=== PATIENT | female | born 1985 | race Caucasian/White ===

== ENCOUNTER → 2017-02-15 | Outpatient (REF) | payer OTHER ==
[2017-02-15 18:23] LABS: MEAN CORPUSCULAR HEMOGLOBIN 32.9 pg (27.0-33.0); MEAN CORPUSCULAR VOLUME 96.7 fl (80.0-96.0); RED CELL DISTRIBUTION WIDTH 12.4 % (11.5-14.5); WHITE BLOOD COUNT 4.3 K/mm3 (4.0-10.0)
[2017-02-15 18:52] LABS: HCG, SERUM QUANTITATIVE 763 MIU/ML
== END ==
LOC: M LAB REF 16:30
PROVIDERS: ATTEND Obstetrics & Gynecology
DX: O36.80X0 Pregnancy with inconclusive fetal viability, not applicable or unspecified (principal); O23.40 Unspecified infection of urinary tract in pregnancy, unspecified trimester

== ENCOUNTER → 2017-03-15 | Outpatient (REF) | payer OTHER | LOC: M LAB REF 17:15 | PROVIDERS: ATTEND Obstetrics & Gynecology | DX: Z34.91 Encounter for supervision of normal pregnancy, unspecified, first trimester (principal); Z11.3 Encounter for screening for infections with a predominantly sexual mode of transmission ==

== ENCOUNTER 2017-09-17 18:21 | Outpatient (CLI) | payer BC, OTHER ==
[~2017-09-17] VITALS: Ht 160 cm; Wt 78.3 kg
[2017-09-17] MEDS ORDERED: PRENTAB9 PO (18:35)
[2017-09-17 19:21] VITALS: BP 123/78
[2017-09-17] MEDS ORDERED: LR 1,000 ML IV ONE (20:30)
[2017-09-17 21:30] LABS: MEAN CORPUSCULAR HEMOGLOBIN 31.2 pg (27.0-33.0); MEAN CORPUSCULAR HGB CONC 33.7 g/dl (32.0-36.5); MEAN CORPUSCULAR VOLUME 92.4 fl (80.0-96.0); PLATELET COUNT, AUTOMATED 335 10^3/uL (150-450); RED CELL DISTRIBUTION WIDTH 12.8 % (11.5-14.5); WHITE BLOOD COUNT 8.7 10^3/uL (4.0-10.0)
== END 2017-09-17 22:06 | disposition home or self-care (01) ==
LOC: M LDO 18:21
PROVIDERS: ATTEND Obstetrics & Gynecology
DX: O47.03 False labor before 37 completed weeks of gestation, third trimester (principal); Z3A.34 34 weeks gestation of pregnancy; Z88.0 Allergy status to penicillin

== ENCOUNTER → 2017-09-26 | Outpatient (REF) | payer OTHER | LOC: M LAB REF 16:48 | DX: Z34.83 Encounter for supervision of other normal pregnancy, third trimester (principal); Z3A.35 35 weeks gestation of pregnancy ==

== ENCOUNTER 2017-10-25 06:38 | Outpatient (CLI) | payer BC, OTHER | END 2017-10-25 13:16 | disposition home or self-care (01) | LOC: M LDO 06:38 | DX: O47.1 False labor at or after 37 completed weeks of gestation (principal); Z3A.40 40 weeks gestation of pregnancy; Z88.0 Allergy status to penicillin | CPT/HCPCS: 59025 ==

== ENCOUNTER 2017-10-27 13:31 | Inpatient (IN) | payer BC, OTHER ==
[2017-10-27] MEDS: LACTATED RINGER'S 1000 ML IV (14:36)
[2017-10-27 15:10] LABS: HEMATOCRIT 31.7 % (36.0-47.0); HEMOGLOBIN 10.5 g/dl (12.0-16.0); MEAN CORPUSCULAR HEMOGLOBIN 30.7 pg (27.0-33.0); MEAN CORPUSCULAR HGB CONC 33.1 g/dl (32.0-36.5); MEAN CORPUSCULAR VOLUME 92.7 fl (80.0-96.0); PLATELET COUNT, AUTOMATED 356 10^3/uL (150-450); RED BLOOD COUNT 3.42 10^6/uL (4.00-5.40); RED CELL DISTRIBUTION WIDTH 13.6 % (11.5-14.5); WHITE BLOOD COUNT 9.1 10^3/uL (4.0-10.0)
[2017-10-27] MEDS: OXYTOCIN DRIP 30 UNITS in APPROPRIATE DILUENT 1 EA IV (15:26)
[2017-10-27] MEDS: LR 1,000 ML IV (16:12)
[2017-10-27] MEDS ORDERED: FENTANYL 2MCG/ML ROPIVACAINE 0.2% IN 0.9% NACL 200ML IVBAG As Ordered (16:28)
[2017-10-27 17:13] LABS: ALT/SGPT 17 U/L (12-78); AST/SGOT 19 U/L (7-37); BILIRUBIN,TOTAL 0.1 MG/DL (0.2-1.0); CREATININE FOR GFR 0.85 MG/DL (0.55-1.30); GLOMERULAR FILTRATION RATE > 60.0 (>60); LDH LACTATE DEHYDROGENASE 214 U/L (84-246); URIC ACID 4.7 MG/DL (2.6-6.0)
[2017-10-27] MEDS ORDERED: diphenhydrAMINE INJ 50MG/ML VIAL (J1200) IV (17:45)
[2017-10-27] MEDS ORDERED: NALOXONE INJ 0.4 MG/1 ML VIAL (J2310) IV (17:45)
[2017-10-27] MEDS ORDERED: FENTANYL/ROPIVACAINE/NACL BAG 200 ML EPIDURAL (17:45)
[2017-10-27] MEDS ORDERED: REFRIGERATOR IV KEYS XX (17:45)
[2017-10-27] MEDS ORDERED: ONDANSETRON 4MG/2ML VIAL (J2405) IV (17:45)
[2017-10-27] MEDS ORDERED: EPIDURAL COMMENT XX (17:45)
[2017-10-27] MEDS ORDERED: ePHEDrine INJ 50 MG/ML VIAL IV (17:45)
[2017-10-27] MEDS ORDERED: EPIDURAL/PCA KEYS XX (17:45)
[2017-10-28] MEDS ORDERED: NALOXONE INJ 0.4 MG/1 ML VIAL (J2310) IV ×2
[2017-10-28] MEDS ORDERED: OXYTOCIN INJ 10 UNITS/ML VIAL (J2590) As Ordered ×2 (00:58)
[2017-10-28] MEDS ORDERED: MORPHINE PRES-FREE INJ 10 MG/10 ML VIAL (J2274) As Ordered (00:58)
[2017-10-28] MEDS ORDERED: ceFAZolin 2 GM/D5W 50 ML IV BAG (J0690 PER 500MG) As Ordered (01:00)
[2017-10-28] MEDS ORDERED: BICITRA 30ML SOLN UDC As Ordered (01:04)
[2017-10-28] MEDS: BICITRA 30ML SOLN UDC PO (01:15)
[2017-10-28] MEDS ORDERED: ONDANSETRON 4MG/2ML VIAL (J2405) As Ordered (01:23)
[2017-10-28] MEDS ORDERED: METOCLOPRAMIDE INJ 10MG/2ML VIAL (J2765) As Ordered (01:36)
[2017-10-28] MEDS ORDERED: PHENYLephrine HCL 500 MCG/5 ML (100MCG/ML) SYRINGE (J2370) As Ordered (01:45)
[2017-10-28 02:05] LABS: CORD GAS ABE V -3.3; CORD GAS HCO3 V 21.3 MEQ/L; CORD GAS PCO2 V 37.3 mmHg; CORD GAS PH V 7.375 UNITS; CORD GAS PO2 V 31.7 mmHg; CORD GAS SBC V 21.2 MEQ/L; CORD GAS TCO2 V 22.5 MEQ/L
[2017-10-28 02:06] LABS: CORD GAS ABE A -2.9; CORD GAS HCO3 A 23.3 MEQ/L; CORD GAS O2 SAT A 34.1 %; CORD GAS PCO2 A 45.6 mmHg; CORD GAS PH A 7.326 UNITS; CORD GAS PO2 A 16.7 mmHg; CORD GAS SBC A 20.5 MEQ/L; CORD GAS TCO2 A 24.7 MEQ/L
[2017-10-28] MEDS ORDERED: MEASLES,MUMPS,RUBELLA VACCINE INJ (MMR-II) (90707) SC (02:15)
[2017-10-28] MEDS ORDERED: RHOGAM 300 MCG (1500 IU) INJ (J2790) IM (02:15)
[2017-10-28] MEDS ORDERED: ONDANSETRON 4MG/2ML VIAL (J2405) IV ×2 (02:15→03:15)
[2017-10-28] MEDS ORDERED: METHYLERGONOVINE MALEATE 0.2 MG TAB PO (02:15)
[2017-10-28] MEDS ORDERED: fentaNYL 100 MCG/2 ML INJECTION (J3010) As Ordered (02:17)
[2017-10-28] MEDS ORDERED: IBUPROFEN 800 MG TAB PO (03:00)
[2017-10-28] MEDS ORDERED: MEPERIDINE INJ 25 MG/ML VIAL (J2175) IV (03:15)
[2017-10-28] MEDS ORDERED: fentaNYL 100 MCG/2 ML INJECTION (J3010) IV (03:15)
[2017-10-28] MEDS ORDERED: NORCO, ANEXSIA 5/325MG TABLET (HYDROcodone/ACETAMINOPHEN) PO (03:15)
[2017-10-28] MEDS ORDERED: NALBUPHINE HCL 10 MG/ML AMP (J2300) IV (03:15)
[2017-10-28] MEDS: LR 1,000 ML IV ×4 (03:45→18:01)
[2017-10-28] MEDS: KETOROLAC 30 MG/ML VIAL (J1885) IV (04:25)
[2017-10-28] MEDS: ANUSOL HC CREAM 30GM TOP ×2 (04:47→20:01)
[2017-10-28] MEDS: NORCO, ANEXSIA 5/325MG TABLET (HYDROcodone/ACETAMINOPHEN) PO (06:20)
[2017-10-28] MEDS: NALBUPHINE HCL 10 MG/ML AMP (J2300) IV ×2 (06:21→11:23)
[2017-10-28] MEDS: METOCLOPRAMIDE INJ 10MG/2ML VIAL (J2765) IV (08:28)
[2017-10-28] MEDS: DOCUSATE SODIUM 100 MG CAP PO ×2 (08:28→20:01)
[2017-10-28] MEDS: PRENATAL VITAMINS CHEWABLE TABLET PO (09:00)
[2017-10-28] MEDS: ONDANSETRON 4MG/2ML VIAL (J2405) IV (11:24)
[2017-10-28] MEDS: IBUPROFEN 800 MG TAB PO ×2 (12:58→20:01)
[2017-10-29] MEDS: NORCO, ANEXSIA 5/325MG TABLET (HYDROcodone/ACETAMINOPHEN) PO ×4 (02:17→23:28)
[2017-10-29] MEDS: IBUPROFEN 800 MG TAB PO ×3 (05:46→21:24)
[2017-10-29 06:37] LABS: HEMATOCRIT 22.8 % (36.0-47.0); MEAN CORPUSCULAR HEMOGLOBIN 31.1 pg (27.0-33.0); MEAN CORPUSCULAR HGB CONC 32.9 g/dl (32.0-36.5); MEAN CORPUSCULAR VOLUME 94.6 fl (80.0-96.0); PLATELET COUNT, AUTOMATED 238 10^3/uL (150-450); RED BLOOD COUNT 2.41 10^6/uL (4.00-5.40); RED CELL DISTRIBUTION WIDTH 14.1 % (11.5-14.5); WHITE BLOOD COUNT 11.4 10^3/uL (4.0-10.0)
[2017-10-29 06:48] LABS: HEMOGLOBIN 7.5 g/dl (12.0-16.0)
[2017-10-29] MEDS: PRENATAL VITAMINS CHEWABLE TABLET PO (07:55)
[2017-10-29] MEDS: DOCUSATE SODIUM 100 MG CAP PO ×2 (07:55→21:23)
[2017-10-29] MEDS: MOM 30ML SUSPENSION UDC PO (13:56)
[2017-10-29] MEDS: SIMETHICONE 80 MG CHEW TAB PO ×2 (15:35→21:33)
[2017-10-30] MEDS: IBUPROFEN 800 MG TAB PO (04:35)
[2017-10-30] MEDS: ANUSOL HC CREAM 30GM TOP ×2 (04:36→11:51)
[2017-10-30 07:02] LABS: HEMATOCRIT 22.2 % (36.0-47.0); HEMOGLOBIN 7.2 g/dl (12.0-16.0); MEAN CORPUSCULAR HEMOGLOBIN 30.8 pg (27.0-33.0); MEAN CORPUSCULAR HGB CONC 32.4 g/dl (32.0-36.5); MEAN CORPUSCULAR VOLUME 94.9 fl (80.0-96.0); PLATELET COUNT, AUTOMATED 253 10^3/uL (150-450); RED BLOOD COUNT 2.34 10^6/uL (4.00-5.40); RED CELL DISTRIBUTION WIDTH 14.2 % (11.5-14.5); WHITE BLOOD COUNT 8.2 10^3/uL (4.0-10.0)
[2017-10-30] MEDS: DOCUSATE SODIUM 100 MG CAP PO (08:12)
[2017-10-30] MEDS: PRENATAL VITAMINS CHEWABLE TABLET PO (08:12)
[2017-10-30] MEDS: BISACODYL 10 MG SUPP PR (10:59)
[2017-10-30] MEDS: SIMETHICONE 80 MG CHEW TAB PO (11:51)
== END 2017-10-30 12:45 | disposition home or self-care (01) | DRG 540 ==
LOC: M LDI 13:31 → M OBS 10-28 03:26
PROVIDERS: Advanced Practice Midwife
PROC: 10D00Z1 Extraction of Products of Conception, Low, Open Approach (ICD-10-PCS; principal; 2017-10-28 01:10)
PROC: 10907ZC Drainage of Amniotic Fluid, Therapeutic from Products of Conception, Via Natural or Artificial Opening (ICD-10-PCS; 2017-10-28 01:10)
DX: O41.03X0 Oligohydramnios, third trimester, not applicable or unspecified (principal); O32.4XX0 Maternal care for high head at term, not applicable or unspecified; Z37.0 Single live birth; Z3A.40 40 weeks gestation of pregnancy

== ENCOUNTER 2017-12-05 21:45 | Emergency (ER) | payer BC, OTHER ==
[2017-12-05] MEDS: NS 1,000 ML IV (23:20)
[2017-12-05 23:29] LABS: BASO % 0.7 % (0.0-1.0); EOS # 0.2 10^3/uL (0.0-0.50); EOS % 3.3 % (0.0-3.0); HEMATOCRIT 33.8 % (36.0-47.0); HEMOGLOBIN 11.1 g/dl (12.0-16.0); IMMATURE GRANULOCYTE % 0.2 % (0-3.0); LYMPH # 2.4 10^3/uL (1.5-6.5); LYMPH % 44.2 % (24.0-44.0); MEAN CORPUSCULAR HEMOGLOBIN 29.7 pg (27.0-33.0); MEAN CORPUSCULAR HGB CONC 32.8 g/dl (32.0-36.5); MEAN CORPUSCULAR VOLUME 90.4 fl (80.0-96.0); MONO # 0.4 10^3/uL (0.0-0.8); MONO % 6.9 % (0.0-5.0); NEUTROPHILS # 2.4 10^3/uL (1.8-7.7); NEUTROPHILS % 44.7 % (36.0-66.0); PLATELET COUNT, AUTOMATED 290 10^3/uL (150-450); RED BLOOD COUNT 3.74 10^6/uL (4.00-5.40); RED CELL DISTRIBUTION WIDTH 13.4 % (11.5-14.5); WHITE BLOOD COUNT 5.4 10^3/uL (4.0-10.0)
[2017-12-05 23:43] LABS: INR 1.01; PROTHROMBIN TIME 13.4 SECONDS (12.4-14.5)
[2017-12-05 23:58] LABS: ALBUMIN 3.6 GM/DL (3.2-5.2); ALBUMIN/GLOBULIN RATIO 0.82 (1.00-1.93); ALKALINE PHOSPHATASE 102 U/L (45-117); ALT/SGPT 21 U/L (12-78); ANION GAP 6 MEQ/L (8-16); AST/SGOT 16 U/L (7-37); BILIRUBIN,DIRECT < 0.1 MG/DL (0.0-0.2); BILIRUBIN,TOTAL 0.2 MG/DL (0.2-1.0); BLOOD UREA NITROGEN 19 MG/DL (7-18); CALCIUM LEVEL 8.6 MG/DL (8.5-10.1); CARBON DIOXIDE LEVEL 27 MEQ/L (21-32); CHLORIDE LEVEL 107 MEQ/L (98-107); CPK CREATINE PHOSPHOKINASE 51 U/L (26-192); CREATININE FOR GFR 0.92 MG/DL (0.55-1.30); FREE T4 0.82 NG/DL (0.76-1.46); GLOMERULAR FILTRATION RATE > 60.0 (>60); GLUCOSE, FASTING 74 MG/DL (70-100); POTASSIUM SERUM 3.7 MEQ/L (3.5-5.1); SODIUM LEVEL 140 MEQ/L (136-145); TROPONIN I < 0.02 NG/ML (< 0.10)
[2017-12-06 00:03] LABS: D-DIMER QUANT 199.3 ng/ml (<500)
[2017-12-06 00:04] LABS: MB/CK RELATIVE INDEX 1.96 (< OR =4); NT-PRO BNP 69 PG/ML (<125)
== END 2017-12-06 00:42 | disposition home or self-care (01) ==
LOC: M ED 12-06 00:42
DX: R07.89 Other chest pain (principal); R06.00 Dyspnea, unspecified; D64.9 Anemia, unspecified; Z88.0 Allergy status to penicillin
CPT/HCPCS: 93005

== ENCOUNTER 2017-12-13 09:57 | Emergency (ER) | payer BC, OTHER ==
[2017-12-13] MEDS: NS 1,000 ML IV (10:41)
[2017-12-13 10:51] LABS: BASO % 0.9 % (0.0-1.0); EOS # 0.1 10^3/uL (0.0-0.50); EOS % 3.1 % (0.0-3.0); HEMATOCRIT 36.6 % (36.0-47.0); HEMOGLOBIN 11.9 g/dl (12.0-16.0); IMMATURE GRANULOCYTE % 0.2 % (0-3.0); LYMPH # 1.6 10^3/uL (1.5-6.5); LYMPH % 36.1 % (24.0-44.0); MEAN CORPUSCULAR HEMOGLOBIN 28.9 pg (27.0-33.0); MEAN CORPUSCULAR HGB CONC 32.5 g/dl (32.0-36.5); MEAN CORPUSCULAR VOLUME 88.8 fl (80.0-96.0); MONO # 0.3 10^3/uL (0.0-0.8); MONO % 6.9 % (0.0-5.0); NEUTROPHILS # 2.4 10^3/uL (1.8-7.7); NEUTROPHILS % 52.8 % (36.0-66.0); PLATELET COUNT, AUTOMATED 330 10^3/uL (150-450); RED BLOOD COUNT 4.12 10^6/uL (4.00-5.40); RED CELL DISTRIBUTION WIDTH 13.1 % (11.5-14.5); WHITE BLOOD COUNT 4.5 10^3/uL (4.0-10.0)
[2017-12-13 11:05] LABS: D-DIMER QUANT < 270.0 ng/ml (<500)
[2017-12-13 11:07] LABS: CONTROL LINE HCG INT CTR LINE PRESENT; HCG, SERUM QUALITATIVE NEGATIVE (NEGATIVE)
[2017-12-13 11:17] LABS: ALBUMIN 3.9 GM/DL (3.2-5.2); ALBUMIN/GLOBULIN RATIO 0.83 (1.00-1.93); ALKALINE PHOSPHATASE 110 U/L (45-117); ALT/SGPT 24 U/L (12-78); ANION GAP 5 MEQ/L (8-16); AST/SGOT 14 U/L (7-37); BILIRUBIN,DIRECT < 0.1 MG/DL (0.0-0.2); BILIRUBIN,TOTAL 0.3 MG/DL (0.2-1.0); BLOOD UREA NITROGEN 15 MG/DL (7-18); CALCIUM LEVEL 8.9 MG/DL (8.5-10.1); CARBON DIOXIDE LEVEL 28 MEQ/L (21-32); CHLORIDE LEVEL 109 MEQ/L (98-107); CPK CREATINE PHOSPHOKINASE 58 U/L (26-192); CREATININE FOR GFR 1.01 MG/DL (0.55-1.30); GLOMERULAR FILTRATION RATE > 60.0 (>60); GLUCOSE, FASTING 93 MG/DL (70-100); POTASSIUM SERUM 3.6 MEQ/L (3.5-5.1); SODIUM LEVEL 142 MEQ/L (136-145); TOTAL PROTEIN 8.6 GM/DL (6.4-8.2); TROPONIN I < 0.02 NG/ML (< 0.10)
[2017-12-13 11:22] LABS: MB/CK RELATIVE INDEX 1.72 (< OR =4)
== END 2017-12-13 12:12 | disposition home or self-care (01) ==
LOC: M ED 09:57
DX: R07.89 Other chest pain (principal); Z88.0 Allergy status to penicillin
CPT/HCPCS: 71046

== ENCOUNTER → 2018-05-03 | Outpatient (REF) | payer OTHER, BC ==
[2018-05-03 13:42] LABS: HEMATOCRIT 36.5 % (36.0-47.0); MEAN CORPUSCULAR HEMOGLOBIN 29.5 pg (27.0-33.0); MEAN CORPUSCULAR HGB CONC 32.9 g/dl (32.0-36.5); MEAN CORPUSCULAR VOLUME 89.7 fl (80.0-96.0); PLATELET COUNT, AUTOMATED 326 10^3/uL (150-450); RED BLOOD COUNT 4.07 10^6/uL (4.00-5.40); RED CELL DISTRIBUTION WIDTH 13.6 % (11.5-14.5); WHITE BLOOD COUNT 4.9 10^3/uL (4.0-10.0)
[2018-05-03 14:51] LABS: HCG, SERUM QUANTITATIVE 2149 MIU/ML
[2018-05-04 10:34] LABS: RUBELLA IgG QUALITATIVE IMMUNE (IMMUNE)
[2018-05-04 10:45] LABS: HEPATITIS B SURFACE ANTIGEN NEGATIVE (NEGATIVE)
[2018-05-04 11:03] LABS: HEPATITIS C VIRUS ABY INDEX 0.1 INDEX (<0.8)
[2018-05-04 11:04] LABS: HIV 1&2 SCREEN CENTAUR NEGATIVE (NEGATIVE)
== END ==
LOC: M LAB REF 12:52
DX: O36.80X0 Pregnancy with inconclusive fetal viability, not applicable or unspecified (principal); Z3A.00 Weeks of gestation of pregnancy not specified
CPT/HCPCS: 86762

== ENCOUNTER → 2018-06-01 | Outpatient (REF) | payer OTHER, BC ==
[2018-06-01 15:35] LABS: CHLAMYDIA DNA AMPLIFICATION NEGATIVE (NEGATIVE); GC DNA AMPLIFICATION NEGATIVE (NEGATIVE)
== END ==
LOC: M LAB REF 13:17
DX: Z34.81 Encounter for supervision of other normal pregnancy, first trimester (principal); Z36.89 Encounter for other specified antenatal screening
CPT/HCPCS: 87591

== ENCOUNTER → 2018-10-15 | Outpatient (CLI) | payer BC, OTHER ==
[~2018-10-15] MED LIST: IBUP-1114 PO; PERC5TAB12 PO; PRENTAB55 PO; PRENTAB9 PO
[2018-10-15 17:10] LABS: HEMATOCRIT 31.8 % (36.0-47.0); HEMOGLOBIN 10.4 g/dl (12.0-15.5); MEAN CORPUSCULAR HEMOGLOBIN 30.9 pg (27.0-33.0); MEAN CORPUSCULAR HGB CONC 32.7 g/dl (32.0-36.5); MEAN CORPUSCULAR VOLUME 94.4 fl (80.0-96.0); PLATELET COUNT, AUTOMATED 298 10^3/uL (150-450); RED BLOOD COUNT 3.37 10^6/uL (4.00-5.40); WHITE BLOOD COUNT 6.6 10^3/uL (4.0-10.0)
== END ==
LOC: M LAB 15:38
PROVIDERS: ATTEND Obstetrics & Gynecology
DX: Z34.82 Encounter for supervision of other normal pregnancy, second trimester (principal)
CPT/HCPCS: 36415; 82950; 85027; 86850; 86901; J2790

== ENCOUNTER → 2018-12-13 | Outpatient (REF) | payer OTHER ==
[~2018-12-13] MED LIST changes: +COLA100C5 PO; +IBUP80TA PO; +OXYC1TAB23 PO; +PERCOCET PO
== END ==
LOC: M LAB REF 13:13
PROVIDERS: ATTEND Obstetrics & Gynecology
DX: Z34.83 Encounter for supervision of other normal pregnancy, third trimester (principal)

== ENCOUNTER 2018-12-17 05:59 | Inpatient (IN) | payer BC, OTHER ==
[2018-12-17] VITALS (7 sets, daily range): BP systolic 109–121; BP diastolic 61–77
[~2018-12-17] VITALS: Ht 160 cm; Wt 76.0 kg
[~2018-12-17 05:59] MED LIST changes: -COLA100C5 PO; -IBUP80TA PO; -OXYC1TAB23 PO; -PERCOCET PO
[2018-12-17] MEDS ORDERED: LACTATED RINGER'S 1000 ML IV STA (06:48)
[2018-12-17] MEDS ORDERED: LR 1,000 ML IV SCH ×2 (06:48→09:03)
[2018-12-17] MEDS ORDERED: BICITRA 30ML SOLN UDC PO ONE (07:00)
[2018-12-17 07:21] LABS: HEMATOCRIT 28.5 % (36.0-47.0); HEMOGLOBIN 9.2 g/dl (12.0-15.5); MEAN CORPUSCULAR HEMOGLOBIN 29.7 pg (27.0-33.0); MEAN CORPUSCULAR HGB CONC 32.3 g/dl (32.0-36.5); MEAN CORPUSCULAR VOLUME 91.9 fl (80.0-96.0); PLATELET COUNT, AUTOMATED 300 10^3/uL (150-450); WHITE BLOOD COUNT 6.4 10^3/uL (4.0-10.0)
[2018-12-17] MEDS ORDERED: MORPHINE PRES-FREE INJ 10 MG/10 ML VIAL (J2274) As Ordered ONE (07:24)
[2018-12-17] MEDS ORDERED: METOCLOPRAMIDE INJ 10MG/2ML VIAL (J2765) IV PRN (08:00)
[2018-12-17] MEDS ORDERED: NALOXONE INJ 0.4 MG/1 ML VIAL (J2310) IV PRN ×2 (08:00)
[2018-12-17] MEDS ORDERED: NALBUPHINE HCL 10 MG/ML AMP (J2300) IV PRN (08:00)
[2018-12-17] MEDS ORDERED: diphenhydrAMINE INJ 50MG/ML VIAL (J1200) IV PRN (08:00)
[2018-12-17] MEDS ORDERED: ONDANSETRON 4MG/2ML VIAL (J2405) IV PRN ×2 (08:00→09:15)
--- NOTE | 2018-12-17 08:04 | HPE ---
DATE OF ADMISSION: 12/17/2018 HISTORY: 32-year-old, 2, para 1 female at 37 and 3/7 weeks gestation by last menstrual period, first trimester ultrasound, who presents with spontaneous loss of fluid at 5:30 a.m. on the day of admission. She continued to leak fluid. She denies contractions or vaginal bleeding. COURSE: The patient's care was done through [facility] with Dr. Daily. There have been no complications. OBSTETRICAL HISTORY: 1. October 2017 she had a primary section for a 7 pound 11 ounce male , diagnosed with arrest of descent. MEDICAL HISTORY: 1. Kidney stones. SURGICAL HISTORY: 1. Breast augmentation. 2. Esophageal surgery as an infant. ALLERGIES: None. SOCIAL HISTORY: The patient is . She denies tobacco, alcohol or drug use. She works as a estate planning attorney. FAMILY HISTORY: Breast cancer and Alzheimer's dementia. MEDICATIONS: - vitamins PHYSICAL EXAMINATION: Blood pressure 130/74, pulse 84. She is in no apparent distress. HEAD/NECK EXAM: Normal. LUNGS: Clear. HEART: Regular rhythm. ABDOMEN: Nontender, gravid. heart tones category 1. Sterile vagina examination: Deferred. Grossly ruptured with clear fluid noted. LABORATORIES: Blood type O negative, Rubella immune, RPR nonreactive. Diabetes screen 110. Group B streptococcus (GBS) negative. ASSESSMENT: 32-year-old 2, para 1 female at 37 and 3/7 weeks gestation who presented today for premature rupture of membranes, not in active labor. The patient desires repeat section. PLAN: Proceed with section today. Risks were discussed.
[2018-12-17] MEDS ORDERED: ePHEDrine SULFATE 25 MG/5 ML(5MG/ML) SYRINGE As Ordered ONE (08:10)
[2018-12-17] MEDS ORDERED: ONDANSETRON 4MG/2ML VIAL (J2405) As Ordered ONE (08:34)
[2018-12-17] MEDS ORDERED: OXYTOCIN INJ 10 UNITS/ML VIAL (J2590) As Ordered ONE ×2 (08:34→08:35)
[2018-12-17] MEDS ORDERED: KETOROLAC 60 MG/2 ML VIAL (J1885) As Ordered ONE (08:34)
[2018-12-17] MEDS ORDERED: OXYTOCIN DRIP 30 UNITS in APPROPRIATE DILUENT 1 EA IV SCH (09:03)
[2018-12-17] MEDS ORDERED: MEASLES,MUMPS,RUBELLA VACCINE INJ (MMR-II) (90707) SC SCH (09:15)
[2018-12-17] MEDS ORDERED: RHOGAM 300 MCG (1500 IU) INJ (J2790) IM SCH (09:15)
[2018-12-17] MEDS ORDERED: PERCOCET 5MG/325MG TAB PO PRN (09:15)
[2018-12-17] MEDS ORDERED: DOCUSATE SODIUM 100 MG CAP PO PRN (09:15)
[2018-12-17] MEDS ORDERED: OXYTOCIN 30 UNITS IN 0.9% NaCl 500ML IV BAG (J2590) As Ordered ONE (09:23)
[2018-12-17] MEDS: KETOROLAC 30 MG/ML VIAL (J1885) IV SCH ×2 (14:00→19:56)
--- NOTE | 2018-12-17 15:16 | RO ---
DATE OF PROCEDURE: 12/17/2018 PREPROCEDURE DIAGNOSES: 37 and 3/7 weeks gestation, premature rupture of membranes, prior section. POSTPROCEDURE DIAGNOSES: 37 and 3/7 weeks gestation, premature rupture of membranes, prior section. PROCEDURE: Repeat low transverse section, bilateral tubal ligation. SURGEON: Danie Duval MD [employer] SUPERVISOR: Peyton Angel CNM ANESTHESIA: Spinal. ESTIMATED BLOOD LOSS: 500 mL. URINE OUTPUT: 200 mL. INTRAVENOUS (IV) FLUIDS: 1.4 liters. FINDINGS: 3070 grams, 6 pound 12 ounce male infant, scores 9 and 9. OPERATIVE SUMMARY: Patient taken to the operating room where spinal anesthesia was induced. She was prepped and draped in sterile fashion in the supine position. Molina catheter was placed. A Pfannenstiel skin incision was made with the scalpel and carried through to the fascia. The fascia was nicked and extended. The fascia was dissected off the rectus muscles. Peritoneal cavity was entered. A bladder flap was created. A curvilinear incision was made in the lower uterine segment until clear fluid was noted. This was extended manually. The was delivered from the vertex position without difficulty. The cord was doubly clamped and cut. The was handed off to the awaiting nurses. The placenta was expressed. The uterus was exteriorized and cleared of clots and debris. The uterine incision was closed with #0 Vicryl in a running locked fashion. A second imbricating layer of #0 Vicryl was placed. Attention was turned to the fallopian tubes. The tubes were grasped at the mid portions with Chau clamps. A window was created in the broad ligament. #3-0 chromic was placed around the tube at either end of the [place] clamp. A segment of tube was excised bilaterally and sent to pathology. The uterus was placed back in the abdominal cavity. The peritoneum was closed with #2-0 Vicryl in a running fashion. The fascia was closed with #0 Vicryl. The deep layer was irrigated and skin was closed with #4-0 Monocryl subcuticular sutures. Sponge, instrument and needle counts were correct. Peyton Angel CNM assisted in all aspects of procedure from beginning to end. She helped create all layers of the incision, as well as hysterotomy. She helped with expulsion of the fetus and closure of all subsequent layers.
[2018-12-18] MEDS: KETOROLAC 30 MG/ML VIAL (J1885) IV SCH (01:45)
[2018-12-18 02:00] VITALS: BP 113/65
[2018-12-18 06:00] VITALS: BP 96/58
[2018-12-18 07:46] LABS: HEMATOCRIT 25.4 % (36.0-47.0); HEMOGLOBIN 8.3 g/dl (12.0-15.5); MEAN CORPUSCULAR HEMOGLOBIN 29.9 pg (27.0-33.0); MEAN CORPUSCULAR HGB CONC 32.7 g/dl (32.0-36.5); MEAN CORPUSCULAR VOLUME 91.4 fl (80.0-96.0); PLATELET COUNT, AUTOMATED 285 10^3/uL (150-450); RED BLOOD COUNT 2.78 10^6/uL (4.00-5.40); WHITE BLOOD COUNT 6.7 10^3/uL (4.0-10.0)
[2018-12-18] MEDS: PRENATAL VITAMINS CHEWABLE TABLET PO SCH (08:39)
[2018-12-18] MEDS: IBUPROFEN 800 MG TAB PO SCH ×2 (09:31→18:06)
[2018-12-18 10:00] VITALS: BP 106/65
[2018-12-18 14:00] VITALS: BP 107/56
[2018-12-18] MEDS: PERCOCET 5MG/325MG TAB PO PRN (15:48)
[2018-12-18 18:00] VITALS: BP 116/72
[2018-12-18 22:29] VITALS: BP 111/61
[2018-12-19] MEDS: IBUPROFEN 800 MG TAB PO SCH ×2 (01:02→09:30)
[2018-12-19] MEDS: PERCOCET 5MG/325MG TAB PO PRN (01:03)
[2018-12-19 02:14] VITALS: BP 105/56
[2018-12-19 06:03] VITALS: BP 109/64
[2018-12-19] MEDS: PRENATAL VITAMINS CHEWABLE TABLET PO SCH (09:29)
[2018-12-19] MEDS ORDERED: OXYC1TAB23 PO ×2 (13:48→13:49)
[2018-12-19] MEDS ORDERED: COLA100C5 PO (13:51)
[2018-12-19] MEDS ORDERED: PERCOCET PO (14:00)
[2018-12-19] MEDS ORDERED: IBUP80TA PO (14:01)
--- NOTE | 2018-12-19 16:59 | DSES ---
DATE OF ADMISSION: 12/17/2018 DATE OF DISCHARGE: 12/19/2018 A 32-year-old female at 37-3/7 weeks gestation with a history of two prior sections who presents with spontaneous loss of fluid per vagina on the morning of admission. She continued to leak fluid. She was confirmed to have ruptured membranes on presentation to the hospital. HOSPITAL COURSE: The patient was admitted on 12/17/2018. Her care was through [facility] She had confirmation of rupture of membranes and early labor. Due to her history of two prior sections, she was already scheduled for a repeat section. On 12/17/2018, she underwent repeat low transverse section and bilateral tubal ligation for a 6-pound, 12-ounce male . There were no complications. Her postoperative course was unremarkable. She had adequate return of bladder and bowel function. She was deemed stable for discharge on postoperative day number two. ADMISSION DIAGNOSES: 1. at 37-3/7 weeks. 2. Premature rupture of membranes. DISCHARGE DIAGNOSIS: Delivered. PROCEDURE: Repeat low transverse section and bilateral tubal ligation. DISPOSITION: The patient will followup with Dr. Polk in two weeks. Instructions were reviewed.
== END 2018-12-19 14:30 | disposition home or self-care (01) | DRG 540 ==
LOC: M LDO 05:59 → M LDI 06:41 → M OBS 12:19
PROVIDERS: ADMIT Specialist; ATTEND Specialist
PROC: 10D00Z1 Extraction of Products of Conception, Low, Open Approach (ICD-10-PCS; principal; 2018-12-17)
PROC: 0UB70ZZ Excision of Bilateral Fallopian Tubes, Open Approach (ICD-10-PCS; 2018-12-17)
DX: O34.211 Maternal care for low transverse scar from previous cesarean delivery (principal); O42.92 Full-term premature rupture of membranes, unspecified as to length of time between rupture and onset of labor; Z3A.37 37 weeks gestation of pregnancy; O75.82 Onset (spontaneous) of labor after 37 completed weeks of gestation but before 39 completed weeks gestation, with delivery by (planned) cesarean section; Z37.0 Single live birth; Z30.2 Encounter for sterilization

== ENCOUNTER → 2019-04-29 | Outpatient (CLI) | payer BC, OTHER ==
[~2019-04-29] MED LIST changes: +COLA100C5 PO; +IBUP80TA PO; +OXYC1TAB23 PO; +PERCOCET PO
--- NOTE | 2019-04-30 05:13 | REP ---
Clinical: Right first digit pain Technique: AP, lateral, bilateral oblique views right first digit . Findings: The osseous structures and joint spaces are intact and normal. There is no evidence for acute fracture or dislocation. Surrounding soft tissues are unremarkable. No subcutaneous emphysema or radiodense foreign body. Impression: Normal examination . No acute fracture or dislocation. Electronically Signed by Maximus Merino MD 04/30/2019 05:05 A
== END ==
LOC: M WUC 14:20
PROVIDERS: ATTEND Physician Assistant
DX: M79.644 Pain in right finger(s) (principal)

== ENCOUNTER 2019-10-02 19:01 | Emergency (ER) | payer OTHER ==
[~2019-10-02] VITALS: Ht 162.6 cm; Wt 63.6 kg
[2019-10-02] MEDS ORDERED: ONDANSETRON 4 MG ORAL DISINTEGRATING TAB (Q0162 PER 1MG) PO ONE (20:30)
[2019-10-02] MEDS ORDERED: KETOROLAC 60 MG/2 ML VIAL (J1885) IM ONE (20:30)
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
[2019-10-02 21:17] VITALS: BP 111/75
== END 2019-10-02 21:25 | disposition home or self-care (01) ==
LOC: M ED 19:01
DX: Z04.1 Encounter for examination and observation following transport accident (principal); R51 Headache; Z88.0 Allergy status to penicillin
CPT/HCPCS: 70450; 72125; 96372; 99283; J1885; Q0162

== ENCOUNTER → 2020-09-28 | Outpatient (CLI) | payer BC, OTHER ==
--- NOTE | 2020-09-28 13:00 | REP ---
INDICATION: SOB COMPARISON: 12/13/2017 TECHNIQUE: PA and lateral. FINDINGS: The mediastinum and cardiac silhouette are normal. The lung palma are clear and without acute consolidation, effusion, or pneumothorax. The skeletal structures are intact and normal. IMPRESSION: No acute cardiopulmonary process. <Electronically signed by Maximus Merino > 09/28/20 [id number]
[2020-09-28 13:59] LABS: BASO # 0.1 10^3/uL (0.0-0.2); BASO % 1.3 % (0.0-1.0); EOS # 0.1 10^3/uL (0.0-0.5); EOS % 1.8 % (0.0-3.0); HEMATOCRIT 40.9 % (36.0-47.0); HEMOGLOBIN 12.7 g/dl (12.0-15.5); LYMPH # 1.7 10^3/uL (1.5-5.0); MEAN CORPUSCULAR HEMOGLOBIN 27.9 pg (27.0-33.0); MEAN CORPUSCULAR HGB CONC 31.1 g/dl (32.0-36.5); MEAN CORPUSCULAR VOLUME 89.9 fl (80.0-96.0); MONO # 0.3 10^3/uL (0.0-0.8); MONO % 7.5 % (0.0-5.0); NEUTROPHILS # 1.9 10^3/uL (1.5-8.5); NEUTROPHILS % 46.1 % (36.0-66.0); PLATELET COUNT, AUTOMATED 305 10^3/uL (150-450); RED BLOOD COUNT 4.55 10^6/uL (4.00-5.40)
[2020-09-28 16:23] LABS: ALBUMIN 4.6 GM/DL (3.2-5.2); ALT/SGPT 15 U/L (12-78); BILIRUBIN,TOTAL 0.6 MG/DL (0.2-1.0); BLOOD UREA NITROGEN 12 MG/DL (7-18); CALCIUM LEVEL 9.3 MG/DL (8.5-10.1); CARBON DIOXIDE LEVEL 29 MEQ/L (21-32); CHLORIDE LEVEL 106 MEQ/L (98-107); GLOMERULAR FILTRATION RATE > 60.0 (>60); GLUCOSE, FASTING 79 MG/DL (70-100); POTASSIUM SERUM 4.1 MEQ/L (3.5-5.1); SODIUM LEVEL 138 MEQ/L (136-145); TOTAL PROTEIN 8.3 GM/DL (6.4-8.2)
== END ==
LOC: M WUC 12:30
PROVIDERS: ATTEND Physician Assistant
DX: R06.02 Shortness of breath (principal)

== ENCOUNTER → 2021-08-05 | Outpatient (REF) | payer BC, OTHER | LOC: M LAB REF 12:36 | PROVIDERS: ATTEND Advanced Practice Midwife | DX: E34.9 Endocrine disorder, unspecified (principal) ==

== ENCOUNTER 2021-12-14 17:00 | Emergency (ER) | payer BC, OTHER ==
[~2021-12-14] VITALS: Ht 162.6 cm; Wt 64.3 kg
[2021-12-14 18:12] LABS: BASO % 0.8 % (0.0-1.0); EOS # 0.1 10^3/uL (0.0-0.5); EOS % 1.8 % (0.0-3.0); HEMATOCRIT 37.5 % (36.0-47.0); HEMOGLOBIN 12.4 g/dl (12.0-15.5); LYMPH # 1.7 10^3/uL (1.5-5.0); LYMPH % 34.5 % (24.0-44.0); MEAN CORPUSCULAR HEMOGLOBIN 30.2 pg (27.0-33.0); MEAN CORPUSCULAR HGB CONC 33.1 g/dl (32.0-36.5); MEAN CORPUSCULAR VOLUME 91.2 fl (80.0-96.0); MONO # 0.3 10^3/uL (0.0-0.8); NEUTROPHILS # 2.8 10^3/uL (1.5-8.5); NEUTROPHILS % 56.7 % (36.0-66.0); PLATELET COUNT, AUTOMATED 256 10^3/uL (150-450); RED BLOOD COUNT 4.11 10^6/uL (4.00-5.40); WHITE BLOOD COUNT 4.9 10^3/uL (4.0-10.0)
[2021-12-14 18:34] LABS: BLOOD UREA NITROGEN 16 MG/DL (7-18); CALCIUM LEVEL 8.7 MG/DL (8.5-10.1); CARBON DIOXIDE LEVEL 30 MEQ/L (21-32); CHLORIDE LEVEL 107 MEQ/L (98-107); CREATININE FOR GFR 0.84 MG/DL (0.55-1.30); GLOMERULAR FILTRATION RATE > 60.0 (>60); GLUCOSE, FASTING 112 MG/DL (70-100); POTASSIUM SERUM 3.8 MEQ/L (3.5-5.1); SODIUM LEVEL 140 MEQ/L (136-145)
[2021-12-14 18:41] LABS: CK-MB VALUE MASS < 1.0 NG/ML (<3.6); CPK CREATINE PHOSPHOKINASE 65 U/L (26-192); MB/CK RELATIVE INDEX 1.54 (< OR =4)
[2021-12-14 18:50] LABS: HCG, SERUM QUALITATIVE NEGATIVE (NEGATIVE)
[2021-12-14 21:42] LABS: CK-MB VALUE MASS < 1.0 NG/ML (<3.6); CPK CREATINE PHOSPHOKINASE 62 U/L (26-192); MB/CK RELATIVE INDEX 1.61 (< OR =4)
[2021-12-14] MEDS ORDERED: ISOVUE-370 76% 100ML VIAL As Ordered ONE (21:46)
[2021-12-15 00:29] VITALS: BP 115/70
== END 2021-12-15 00:44 | disposition home or self-care (01) ==
LOC: M ED 17:00
DX: R07.9 Chest pain, unspecified (principal); Z88.0 Allergy status to penicillin
CPT/HCPCS: 36415; 71275; 80048; 82550; 82553; 84484; 84703; 85025; 85379; 93005; 99285; Q9967

== ENCOUNTER 2022-10-19 07:53 | Emergency (ER) | payer BC, OTHER ==
[~2022-10-19] VITALS: Ht 162.6 cm; Wt 64.8 kg
[2022-10-19] MEDS ORDERED: ONDA4TAB6 (08:09)
[2022-10-19 08:59] LABS: BASO % 0.5 % (0.0-1.0); EOS # 0.1 10^3/uL (0.0-0.5); EOS % 1.5 % (0.0-3.0); HEMATOCRIT 39.3 % (36.0-47.0); HEMOGLOBIN 13.4 g/dl (12.0-15.5); LYMPH # 1.4 10^3/uL (1.5-5.0); LYMPH % 35.8 % (24.0-44.0); MEAN CORPUSCULAR HEMOGLOBIN 30.7 pg (27.0-33.0); MEAN CORPUSCULAR HGB CONC 34.1 g/dl (32.0-36.5); MEAN CORPUSCULAR VOLUME 90.1 fl (80.0-96.0); MONO # 0.4 10^3/uL (0.0-0.8); MONO % 9.7 % (2.0-8.0); NEUTROPHILS % 52.2 % (36.0-66.0); PLATELET COUNT, AUTOMATED 284 10^3/uL (150-450); RED BLOOD COUNT 4.36 10^6/uL (4.00-5.40); WHITE BLOOD COUNT 3.9 10^3/uL (4.0-10.0)
[2022-10-19 09:30] LABS: ALBUMIN 3.9 G/DL (3.2-5.2); ALKALINE PHOSPHATASE 59 U/L (46-116); ALT/SGPT 14 U/L (7.0-40); AMYLASE 45 U/L (30-118); AST/SGOT 38 U/L (<34); BILIRUBIN,DIRECT 0.2 MG/DL (<0.4); BILIRUBIN,TOTAL 0.6 MG/DL (0.3-1.2); BLOOD UREA NITROGEN 16 MG/DL (9-23); CALCIUM LEVEL 8.4 MG/DL (8.5-10.1); CARBON DIOXIDE LEVEL 26 MMOL/L (20-31); CHLORIDE LEVEL 105 MMOL/L (98-107); CREATININE FOR GFR 0.88 MG/DL (0.55-1.30); GLOMERULAR FILTRATION RATE > 60.0 (>60); GLUCOSE, FASTING 77 MG/DL (60-100); POTASSIUM SERUM 3.6 MMOL/L (3.5-5.1); SODIUM LEVEL 138 MMOL/L (136-145); TOTAL PROTEIN 7.7 G/DL (5.7-8.2)
[2022-10-19] MEDS ORDERED: ACETAMINOPHEN 500 MG TAB PO ONE (11:50)
[2022-10-19 13:41] VITALS: BP 114/72
== END 2022-10-19 14:08 | disposition home or self-care (01) ==
LOC: M ED 07:53
DX: A08.39 Other viral enteritis (principal); Z87.442 Personal history of urinary calculi; Z87.448 Personal history of other diseases of urinary system; Z88.0 Allergy status to penicillin

== ENCOUNTER 2023-03-29 19:26 | Emergency (ER) | payer OTHER, BC ==
[~2023-03-29] VITALS: Ht 162.6 cm; Wt 66.6 kg
[~2023-03-29 19:26] MED LIST changes: +ONDA4TAB6
[2023-03-29 21:42] LABS: BASO # 0.1 10^3/uL (0.0-0.2); BASO % 1.1 % (0.0-1.0); EOS # 0.1 10^3/uL (0.0-0.5); EOS % 2.6 % (0.0-3.0); HEMATOCRIT 34.5 % (36.0-47.0); HEMOGLOBIN 11.7 g/dl (12.0-15.5); LYMPH % 43.5 % (24.0-44.0); MEAN CORPUSCULAR HEMOGLOBIN 31.2 pg (27.0-33.0); MEAN CORPUSCULAR HGB CONC 33.9 g/dl (32.0-36.5); MONO # 0.4 10^3/uL (0.0-0.8); MONO % 7.5 % (2.0-8.0); NEUTROPHILS # 2.1 10^3/uL (1.5-8.5); NEUTROPHILS % 45.1 % (36.0-66.0); PLATELET COUNT, AUTOMATED 264 10^3/uL (150-450); RED BLOOD COUNT 3.75 10^6/uL (4.00-5.40); WHITE BLOOD COUNT 4.7 10^3/uL (4.0-10.0)
[2023-03-29 21:52] LABS: INR 0.96
[2023-03-29 21:54] LABS: D-DIMER QUANT 296.33 ng/ml (<500)
[2023-03-29] MEDS ORDERED: ISOVUE-370 76% 100ML VIAL As Ordered ONE (21:57)
[2023-03-29 22:14] LABS: CK-MB VALUE MASS < 1.0 NG/ML (<3.6); LIPASE 37 U/L (12-53)
[2023-03-29 22:16] LABS: ALBUMIN 3.9 G/DL (3.2-5.2); ALKALINE PHOSPHATASE 78 U/L (46-116); ALT/SGPT < 9 U/L (7.0-40); AST/SGOT < 8 U/L (<34); BILIRUBIN,DIRECT < 0.1 MG/DL (<0.4); BILIRUBIN,TOTAL 0.2 MG/DL (0.3-1.2); BLOOD UREA NITROGEN 20 MG/DL (9-23); CALCIUM LEVEL 8.7 MG/DL (8.5-10.1); CARBON DIOXIDE LEVEL 28 MMOL/L (20-31); CHLORIDE LEVEL 108 MMOL/L (98-107); CREATININE FOR GFR 0.77 MG/DL (0.55-1.30); GLOMERULAR FILTRATION RATE > 60.0 (>60); GLUCOSE, FASTING 84 MG/DL (60-100); POTASSIUM SERUM 3.9 MMOL/L (3.5-5.1); SODIUM LEVEL 140 MMOL/L (136-145)
[2023-03-29 22:21] LABS: CPK CREATINE PHOSPHOKINASE 68 U/L (34-145); MB/CK RELATIVE INDEX 1.47 (< OR =4)
[2023-03-29 23:04] LABS: CK-MB VALUE MASS < 1.0 NG/ML (<3.6)
[2023-03-29 23:07] LABS: CPK CREATINE PHOSPHOKINASE 62 U/L (34-145); MB/CK RELATIVE INDEX 1.61 (< OR =4)
[2023-03-30] MEDS ORDERED: NEUR300C PO (00:06)
[2023-03-30] MEDS ORDERED: HOLTER MONITOR XX (00:07)
[2023-03-30 00:15] VITALS: BP 116/79; TEMP 98.3; O2SAT 98
[2023-03-30] MEDS ORDERED: GABAPENTIN 300 MG CAP PO ONE (00:15)
[2023-03-30] MEDS ORDERED: KETOROLAC 30 MG/ML 1ML VIAL IV ONE (00:15)
== END 2023-03-30 00:15 | disposition home or self-care (01) ==
LOC: M ED 19:26
DX: R20.2 Paresthesia of skin (principal); R00.2 Palpitations; Z88.0 Allergy status to penicillin; Z79.899 Other long term (current) drug therapy
CPT/HCPCS: 70450; 70496; 70498; 71045; 72125; 80047; 80048; 80076; 82550; 82553; 83690; 84484; 84702; 85025; 85379; 85610; 93005; 96374; 99284; J1885; Q9967

== ENCOUNTER → 2023-03-31 | Outpatient (CLI) | payer OTHER, BC ==
[~2023-03-31] MED LIST changes: +HOLTER MONITOR XX; +NEUR300C PO
== END ==
LOC: M EKG 08:05
PROVIDERS: ATTEND Physician Assistant
DX: R00.2 Palpitations (principal)

== ENCOUNTER → 2023-09-04 | Outpatient (CLI) | payer BC, OTHER ==
[2023-09-04 10:50] LABS: BASO % 0.8 % (0.0-1.0); EOS # 0.1 10^3/uL (0.0-0.5); EOS % 2.5 % (0.0-3.0); HEMATOCRIT 37.1 % (36.0-47.0); HEMOGLOBIN 11.9 g/dl (12.0-15.5); LYMPH # 1.3 10^3/uL (1.5-5.0); LYMPH % 35.3 % (24.0-44.0); MEAN CORPUSCULAR HEMOGLOBIN 29.6 pg (27.0-33.0); MEAN CORPUSCULAR HGB CONC 32.1 g/dl (32.0-36.5); MEAN CORPUSCULAR VOLUME 92.3 fl (80.0-96.0); MONO # 0.2 10^3/uL (0.0-0.8); MONO % 5.6 % (2.0-8.0); NEUTROPHILS % 55.8 % (36.0-66.0); PLATELET COUNT, AUTOMATED 244 10^3/uL (150-450); RED BLOOD COUNT 4.02 10^6/uL (4.00-5.40); WHITE BLOOD COUNT 3.6 10^3/uL (4.0-10.0)
[2023-09-04 11:09] LABS: ERYTHROCYTE SEDIMENTATION RATE 4 mm/hr (0-20)
== END ==
LOC: M PLALAB 08:13
PROVIDERS: ATTEND Physician Assistant Surgical
DX: M25.512 Pain in left shoulder (principal)

== ENCOUNTER → 2023-09-06 | Outpatient (CLI) | payer BC, OTHER | LOC: M WHC 13:04 | PROVIDERS: ATTEND Internal Medicine | DX: I89.0 Lymphedema, not elsewhere classified (principal); N61.0 Mastitis without abscess | CPT/HCPCS: 76642; 77066; G0279 ==

== ENCOUNTER → 2023-12-11 | Outpatient (REF) | payer BC, OTHER ==
[2023-12-11 17:17] LABS: FERRITIN 4.7 NG/ML (7.3-270.7)
== END ==
LOC: M LAB REF 16:36
PROVIDERS: ATTEND Internal Medicine
DX: D64.9 Anemia, unspecified (principal)

== ENCOUNTER → 2024-06-24 | Outpatient (REF) | payer BC, OTHER ==
[~2024-06-24] MED LIST changes: +ONDA-282; -ONDA4TAB6
== END ==
LOC: M LAB REF 11:38
PROVIDERS: ATTEND Internal Medicine
DX: I89.0 Lymphedema, not elsewhere classified (principal)